=== PATIENT | male | born 1960 | race Caucasian/White ===

== ENCOUNTER → 2016-12-04 | Outpatient (CLI) | payer OTHER | END | disposition home or self-care (01) | LOC: US 15:42 | DX: I10 Essential (primary) hypertension (principal); R22.1 Localized swelling, mass and lump, neck ==

== ENCOUNTER → 2020-02-22 | Outpatient (CLI) | payer OTHER | END | disposition home or self-care (01) | LOC: COVID19 14:56 | PROVIDERS: ATTEND Nurse Practitioner Primary Care | DX: Z20.828 Contact with and (suspected) exposure to other viral communicable diseases (principal) ==

== ENCOUNTER → 2022-04-29 | Outpatient (CLI) | payer OTHER | END | disposition home or self-care (01) | LOC: US 01:10 | PROVIDERS: ATTEND Internal Medicine | DX: R10.11 Right upper quadrant pain (principal) ==

== ENCOUNTER → 2023-05-01 | Outpatient (CLI) | payer OTHER | END | disposition home or self-care (01) | LOC: US 00:26 | PROVIDERS: ATTEND Internal Medicine | DX: R10.11 Right upper quadrant pain (principal); N28.1 Cyst of kidney, acquired ==

== ENCOUNTER → 2023-05-05 | Outpatient (CLI) | payer OTHER ==
[~2023-05-05] MED LIST: SINCALIDE 1.9 MCG in SODIUM CHLORIDE 0.9% 50 ML IV ONE
== END | disposition home or self-care (01) ==
LOC: NM 03:46
PROVIDERS: ATTEND Internal Medicine
DX: R10.11 Right upper quadrant pain (principal); R19.7 Diarrhea, unspecified

== ENCOUNTER → 2023-07-30 | Outpatient (CLI) | payer OTHER ==
[~2023-07-30] MED LIST changes: +IOHEXOL 300 MG/ML 100 ML VIAL IV ONE; +LISINOPRIL40 MG PO; +METOPROLOL SUCC25 M2 PO; +NUCYNTA ER100 M1 PO; -SINCALIDE 1.9 MCG in SODIUM CHLORIDE 0.9% 50 ML IV ONE; +SODIUM CHLORIDE 0.9% 1,000 ML IV ONE; +SODIUM CHLORIDE 0.9% 500 ML IV SCH
[2023-07-30 09:18] VITALS: BP 136/47
== END | disposition home or self-care (01) ==
LOC: IV THERAPY 07-23 09:00 → CT 10:00
PROVIDERS: ATTEND Internal Medicine
DX: K76.0 Fatty (change of) liver, not elsewhere classified (principal); K57.30 Diverticulosis of large intestine without perforation or abscess without bleeding; N26.1 Atrophy of kidney (terminal); M43.27 Fusion of spine, lumbosacral region; N28.1 Cyst of kidney, acquired